=== PATIENT | male | born 1940 | race Caucasian/White ===

== ENCOUNTER 2017-01-03 07:45 | Outpatient (CLI) ==
[2017-01-03 08:32] LABS: BASOPHILS % (AUTO) 0.6 % (0.0-3.0); EOSINOPHILS # (AUTO) 0.3 K/ul (0.0-0.7); EOSINOPHILS % (AUTO) 4.2 % (0.0-7.0); HEMATOCRIT 40.6 % (42.0-52.0); HEMOGLOBIN 13.9 g/dl (14.0-18.0); IMMATURE GRANULOCYTE % (AUTO) 0.2 % (0.0-5.0); LYMPHOCYTES # (AUTO) 1.8 K/uL (0.60-3.4); LYMPHOCYTES % (AUTO) 29.4 (10.0-50.0); MEAN CORPUSCULAR HEMOGLOBIN 32.4 pg (27.0-31.0); MEAN CORPUSCULAR HGB CONC 34.2 (31.8-35.4); MEAN CORPUSCULAR VOLUME 94.6 fl (80.0-94.0); MONOCYTES # (AUTO) 0.6 K/uL (0.4-2.0); MONOCYTES % (AUTO) 9.1 (0-10); NEUTROPHILS # (AUTO) 3.5 K/ul (2.0-6.9); NEUTROPHILS % (AUTO) 56.5; PLATELET COUNT 212 10^3/uL (140-440); RED BLOOD COUNT 4.29 10^6/ul (4.70-6.10); WHITE BLOOD COUNT 6.16 K/ul (4.2-10.2)
[2017-01-03 08:42] LABS: ALBUMIN 3.8 g/dL (3.4-5.0); ALBUMIN/GLOBULIN RATIO 1.23; ANION GAP 12.5; BILIRUBIN,TOTAL 0.56 mg/dL (0.00-1.20); BUN/CREATININE RATIO 15.53; CALCIUM 9.6 mg/dL (8.2-10.2); CHOL/HDL RATIO 3.6 (4.5-6.4); CREATININE 1.03 mg/dL (0.60-1.10); POTASSIUM 4.5 mmol/L (3.5-5.1); TOTAL PROTEIN 6.9 g/dL (5.8-8.1)
--- NOTE | 2017-01-03 08:48 | US ---
EXAM: Ultrasound bilateral carotid duplex. HISTORY: Syncope. Dizziness. Hypertension. Vertigo. COMPARISON: None available. TECHNIQUE: Multiple claudio scale and color Doppler images were obtained. FINDINGS: Please note that estimates of internal carotid artery stenoses are based upon NASCET neli lainez. Right carotid: Calcified plaquing noted without 50% or greater stenosis. Peak systolic velocity me asurement in the right internal carotid artery is 1.0 meters per second. Right internal to common c arotid artery peak systolic velocity ratio measures 1.3. End diastolic velocity measurement in the right internal carotid artery is 0.3 meters per second. Flow in the right vertebral artery is anteg rade. Left carotid: Calcified plaquing noted without 50% or greater stenosis. Peak systolic velocity king surement in the left internal carotid artery is 0.9 meters per second. Left internal to common [place] artery peak systolic velocity ratio measures 1.1. End diastolic velocity measurement in the lef t internal carotid artery measures 0.3 meters per second. Flow in the left vertebral artery is ante grade. IMPRESSION: 1. No evidence for 50% or greater stenosis in the right or left internal carotid artery. 2. Antegrade flow in both vertebral arteries.
== END 2017-01-03 07:46 | disposition home or self-care (01) ==
LOC: RAD 07:45
PROVIDERS: ATTEND Family Medicine
DX: E11.9 Type 2 diabetes mellitus without complications (principal); E78.5 Hyperlipidemia, unspecified; I10 Essential (primary) hypertension; R42 Dizziness and giddiness; R55 Syncope and collapse; R74.8 Abnormal levels of other serum enzymes; E66.9 Obesity, unspecified; Z79.899 Other long term (current) drug therapy
CPT/HCPCS: 36415; 80053; 80061; 85025